=== PATIENT | male | born 1945 | race Caucasian/White ===

== ENCOUNTER 2018-03-19 10:34 | Emergency (ER) | payer MEDICARE ==
[2018-03-19] MEDS: DIPHTH/TET/ACEL PERTUSS (ADULT) 0.5 ML VIAL IM* (11:12)
[2018-03-19] MEDS: BACITRACIN 0.9 GM OINT TOP (11:26)
== END 2018-03-19 12:06 | disposition home or self-care (01) ==
LOC: FTE 10:34
DX: S31.119A Laceration without foreign body of abdominal wall, unspecified quadrant without penetration into peritoneal cavity, initial encounter (principal); Y04.2XXA Assault by strike against or bumped into by another person, initial encounter; Z23 Encounter for immunization
CPT/HCPCS: 90471; 90715; 99283-25